=== PATIENT | male | born 1975 | race Caucasian/White ===

== ENCOUNTER 2016-07-19 01:31 | Emergency (ER) | payer OTHER ==
[~2016-07-19] VITALS: Ht 177.8 cm; Wt 89.9 kg
[~2016-07-19 01:31] MED LIST: DIVA500T3 PO; DPKSR500 PO; MAGN1TAB16 PO; OLAN10TA11 PO
[2016-07-19 01:37] VITALS: Ht 177.8 cm; Wt 89.9 kg
[2016-07-19] MEDS ORDERED: LORAZEPAM 2 MG/ML 1 ML VIAL IV STA (01:41)
[2016-07-19] MEDS ORDERED: ASPIRIN 324 MG CHEW PO STA (01:41)
[2016-07-19 01:56] LABS: HEMATOCRIT 43.6 % (42-52); MEAN CELL VOLUME 86.2 fL (80-100); MEAN CORPUSCULAR HEMOGLOBIN 31.4 pg (25-34); MEAN CORPUSCULAR HGB CONC 36.5 g/dl (32-36); PLATELET COUNT 139 K/uL (130-400); RED BLOOD COUNT 5.06 M/uL (4.7-6.1); WHITE BLOOD COUNT 7.86 K/uL (4.8-10.8)
[2016-07-19 02:32] LABS: BASO ABS # 0.14 K/uL (0-0.2); BASOPHIL % 1.8 % (0-2); COMPLETE YES; LYMPH ABS # 2.71 K/uL (1.2-3.4); LYMPHOCYTE % 34.5 %; NEUTROPHILS % 15.9 %; VARIANT LYM ABS # 3.48 K/uL; VARIANT LYMPHOCYTE % 44.3 %
[2016-07-19 02:33] LABS: BLOOD UREA NITROGEN 13 mg/dl (7-18); BUN/CREATININE RATIO 11.6 (10-20); CALCIUM 9.1 mg/dl (8.5-10.1); CARBON DIOXIDE 27 mmol/L (21-32); CHLORIDE 102 mmol/L (98-107); GLUCOSE 104 mg/dl (70-99); POTASSIUM 3.7 mmol/L (3.5-5.1); SODIUM 140 mmol/L (136-145)
[2016-07-19] MEDS ORDERED: DIVA500T3 PO (02:37)
[2016-07-19] MEDS ORDERED: MAGN250T3 PO (02:38)
[2016-07-19] MEDS ORDERED: OMEG10007 PO (02:39)
[2016-07-19] MEDS ORDERED: ASPI325T45 PO (02:39)
--- NOTE | 2016-07-19 02:54 | EMERGENCY ROOM VISIT NOTE ---
History Report prepared by Manish: Peyton Mcgrath Under the Supervision of: Dr. Diogo Childress M.D. First contact with patient: 01:34 Chief Complaint: CARDIAC ASSESSMENT Stated Complaint: CHEST DISCOMFORT History of Present Illness The patient is a 41 year old male who presents to the Emergency Room for a cardiac assessment. The patient had a sudden onset of left-sided chest pain around midnight. He describes his pain as sharp and throbbing. He rates his pain as a 4/10. His pain radiates into his left leg. The patient was brought to the ED by ambulance. He states that his pain has started to improve since arriving in the ED. Pressing on his chest exacerbates his pain. The patient also reports elevated BP and palpitations. He denies any recent heavy lifting or long trips. He denies abdominal pain and feeling anxious. He denies any personal or family history of blood clots. 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 A total of 10 systems reviewed and were otherwise negative. Past Medical & Surgical Medical Problems: (1) Depression (2) Schizoaffective disorder, manic type (3) Schizophrenia (4) [place] Teeth Removal Family History FHx: heart disease Social History Smoking Status: Never Smoker Alcohol Use: none Drug Use: none Marital Status: Housing Status: lives with family Occupation Status: unemployed Current/Historical Medications Scheduled Aspirin (Aspirin), 325 MG PO DAILY Divalproex Sodium (Depakote Er), 1,000 MG PO HS Fish Oil ([place]-3), 2,000 MG PO DAILY Magnesium (Magnesium 250 mg), 250 MG PO DAILY Olanzapine (Zyprexa), 5 MG PO HS Allergies Coded Allergies: Quetiapine (Verified Allergy, Unknown, hives, 07/19/16) family reports patient CAN take seroquel but cannot take seroquel xr. Physical Exam Vital Signs Date Time Temp Pulse Resp B/P Pulse Ox O2 Delivery O2 Flow Rate FiO2 07/19/16 03:20 36.8 110 19 123/73 92 07/19/16 03:01 110 19 123/73 92 Room Air 07/19/16 02:35 85 18 127/85 91 Room Air 07/19/16 01:50 86 07/19/16 01:37 Room Air 07/19/16 01:37 36.8 92 22 162/105 95 Room Air Physical Exam GENERAL: Patient is anxious appearing and in no acute distress. HEENT: No acute trauma, normocephalic atraumatic, mucous membranes moist, no nasal congestion, no scleral icterus. NECK: No stridor, no adenopathy, no meningismus, trachea is midline. LUNGS: No dyspnea. Clear to auscultation and equal bilaterally. No wheeze, no rhonchi. HEART: Regular rate and rhythm. No murmurs, rubs, gallops appreciated. ABDOMEN: Soft, nontender, bowel sounds positive, no masses appreciated, no peritonitis. BACK: No midline tenderness, no CVA tenderness EXTREMITIES: Normal motion all extremities, no cyanosis, no edema. NEUROLOGIC: Alert and oriented, no acute motor or sensory deficits, no focal weakness, cranial nerves grossly intact. SKIN: No rash, no jaundice, no diaphoresis. Medical Decision & Procedures ER Provider Diagnostic Interpretation: X ray results are stated below per my interpretation: Chest: 1 view: No infiltrate, no effusion, normal cardiac border. Laboratory Results 07/19/16 01:45 Red Blood Count 5.06, Mean Corpuscular Volume 86.2, Mean Corpuscular Hemoglobin 31.4, Mean Corpuscular Hemoglobin Concent 36.5, Mean Platelet Volume 10.0 07/19/16 01:45 Test 07/19/16 01:45 White Blood Count 7.86 K/uL (4.8-10.8) Red Blood Count 5.06 M/uL (4.7-6.1) Hemoglobin 15.9 g/dL (14.0-18.0) Hematocrit 43.6 % (42-52) Mean Corpuscular Volume 86.2 fL (80-100) Mean Corpuscular Hemoglobin 31.4 pg (25-34) Mean Corpuscular Hemoglobin Concent 36.5 g/dl (32-36) Platelet Count 139 K/uL (130-400) Mean Platelet Volume 10.0 fL (7.4-10.4) RDW Standard Deviation 37.4 fL (36.4-46.3) RDW Coefficient of Variation 12.0 % (11.5-14.5) Neutrophils % (Manual) 15.9 % Lymphocytes % (Manual) 34.5 % Variant Lymphocytes % (manual) 44.3 % Monocytes % (Manual) 3.5 % Basophils % (Manual) 1.8 % (0-2) Neutrophils # (Manual) 1.25 K/uL (1.4-6.5) Total Absolute Neutrophils 1.25 K/uL (1.4-6.5) Lymphocytes # (Manual) 2.71 K/uL (1.2-3.4) Absolute Variant Lymphocytes 3.48 K/uL Total Absolute Lymphocytes 6.19 K/uL (1.2-3.4) Monocytes # (Manual) 0.28 K/uL (0.11-0.59) Basophils # (Manual) 0.14 K/uL (0-0.2) D-Dimer < 190 ug/L FEU (0-500) Anion Gap 11.0 mmol/L (3-11) Est Creatinine Clear Calc Drug Dose 97.7 ml/min Estimated GFR () 94.8 Estimated GFR (Non- 81.8 BUN/Creatinine Ratio 11.6 (10-20) Calcium Level 9.1 mg/dl (8.5-10.1) Total Creatine Kinase 108 U/L (39-308) Creatine Kinase MB < 0.5 ng/ml (0.5-3.6) Creatine Kinase MB Ratio (0-3.0) Troponin I < 0.015 ng/ml (0-0.045) Laboratory results as reviewed by me. Medications Administered Medications (Trade) Dose Ordered Sig/David Route Start Time Stop Time Status Last Admin Dose Admin Aspirin (Aspirin Chew) 324 mg NOW STAT PO 07/19/16 01:41 07/19/16 01:42 DC 07/19/16 01:51 324 MG Lorazepam (Ativan Inj) 1 mg NOW STAT IV 07/19/16 01:41 07/19/16 01:42 DC 07/19/16 01:51 1 MG ECG Indication: chest pain Rate (beats per minute): 87 Rhythm: normal sinus Findings: RBBB, no acute ischemic change, other Comparison ECG Date: 04/22/2014 Change: no significant change ED Course 0134: The patient was evaluated in room B12B. A complete history and physical exam was performed. 0141: Lorazepam 1 mg IV, Aspirin 324 mg PO 0303: I reassessed the patient at this time. He is feeling better and his pain has resolved. He states that this has happened many times before and it isn't his heart. He does not want repeat blood work done. He is requesting to be discharged. I discussed the results and treatment plan with the patient. I answered all pertaining questions that he had. He expressed understanding and verbalized agreement. The patient will be discharged home. Medical Decision Differential: Cardiac Ischemia (STEMI, NSTEMI, Unstable Angina, etc), Aortic Dissection, Arrhythmia, Pulmonary Embolism, Pneumonia, Pneumothorax, MSK, Infectious, Pericarditis/Myocarditis, Esophageal Rupture, Gastrointestinal, amongst other pathologies entertained. 41 yr old male arrives with left sharp clearly reproducible chest pain to palpation. Notes happened many times before. Pain resolving by arrival and anxiety/pain completely gone post ASA ativan. He now wishes to go home stating this happens all the time. Initial EKG and trop unremarkable. Advised repeat testing for cardiac rule out with risks of not and he still wishes to go home. Advised follow up with PCP. RTED at any time for further evaluation/treatment. No evidence of PE, dissection. No infectious findings nor pneumothorax. Denies GI issues. Impression Primary Impression: Left sided chest pain Scribe Attestation The scribe's documentation has been prepared under my direction and personally reviewed by me in its entirety. I confirm that the note above accurately reflects all work, treatment, procedures, and medical decision making performed by me. Departure Information Dispostion Home / Self-Care Referrals [facility] Forms IMPORTANT VISIT INFORMATION Patient Instructions Chest Pain - [facility], My [facility] Additional Instructions If symptoms worsen return immediately or call 911. We are always here to help. Please follow up with Primary Care for further evaluations.
[2016-07-19 03:20] VITALS: BP 123/73; PULSE 110; TEMP 36.8; O2SAT 92
--- NOTE | 2016-07-19 07:15 | DIAGNOSTIC IMAGING REPORT ---
CHEST ONE VIEW PORTABLE CLINICAL HISTORY: Atypical chest pain COMPARISON STUDY: 04/22/2014 FINDINGS: The cardiac and mediastinal contours are normal. There is no evidence of focal pulmonary consolidation. There is no evidence of failure. No pleural effusions are visualized.[ There is minor right basilar atelectasis IMPRESSION: No active disease in the chest. Electronically signed by: Michael Maria M.D. 07/19/2016 7:14 AM Dictated Date/Time: 07/19/2016 7:13 AM
== END 2016-07-19 03:21 | disposition home or self-care (01) ==
LOC: EDBD 01:31 → C.EDB 01:33
DX: R07.89 Other chest pain (principal); I45.10 Unspecified right bundle-branch block; F32.9 Major depressive disorder, single episode, unspecified; F20.9 Schizophrenia, unspecified; Z79.82 Long term (current) use of aspirin; Z79.899 Other long term (current) drug therapy; Z88.8 Allergy status to other drugs, medicaments and biological substances; Z82.49 Family history of ischemic heart disease and other diseases of the circulatory system

== ENCOUNTER 2017-01-09 12:14 | Emergency (ER) | payer OTHER ==
[~2017-01-09] VITALS: Ht 177.8 cm; Wt 90.9 kg
[~2017-01-09 12:14] MED LIST changes: +ASPI325T45 PO; -DPKSR500 PO; -MAGN1TAB16 PO; +MAGN250T3 PO; +OMEG10007 PO
[2017-01-09 12:18] VITALS: TEMP 36.7; Ht 177.8 cm; Wt 90.9 kg
[2017-01-09] MEDS ORDERED: DIVA500T3 PO (13:12)
[2017-01-09] MEDS ORDERED: MAGN250T9 PO (13:12)
[2017-01-09] MEDS ORDERED: ASPI81TA28 PO (13:12)
[2017-01-09] MEDS ORDERED: OLAN-111 PO (13:12)
[2017-01-09 13:41] VITALS: BP 147/102; PULSE 75; O2SAT 97
--- NOTE | 2017-01-09 23:19 | EMERGENCY ROOM VISIT NOTE ---
ED Visit Note First contact with patient: 12:57 Chief Complaint: Headache and nausea. History of Present Illness: Mr. Hilliard is a 41-year-old white male who ambulates into the ED with complaints of hypertension. Patient reports he feels like he is having a reaction to mayonnaise similar to previous after eating macaroni salad last evening. Patient reports after eating macaroni salad he developed nausea but did not have any vomiting. He reports the nausea lasted until this morning when he went for a walk. This morning when he awoke he reports he developed a bifrontal headache. He describes this as a throbbing sensation and then goes on to report that the pain has resolved. Associated with the pain he reports he was having light sensitivity and also reports this has self resolved. After an extensive interview I did asked the patient if he was having any problems currently and he reports he is having hypertension. He does report he has a history of hypertension but does not take any medications for it. I asked him if he had any symptoms with his hypertension and he said no. I did offer to do testing on the patient concerning his symptoms that started last evening and also today and he refused. He did request that I prescribe some medication for high blood pressure and I reported that that need occur during a primary care provider appointment. He then went on to report that he does not have a primary care physician and requested that I find one for him. Buy the end of my interview with the patient he reports that he is a pain and symptom-free. Review of Systems: As noted above in history of present illness. At least body systems were reviewed and found to be negative as noted above. Past Medical History: (1) Depression (2) Schizoaffective disorder, manic type (3) Schizophrenia (4) [place] Teeth Removal Current Medications: Medications Dose Route/Sig Max Daily Dose Days Date Category Zyprexa (Olanzapine) 5 Mg Tab 5 Mg PO HS 01/09/17 Reported Magnesium 250 Mg Tab 250 Mg PO DAILY 01/09/17 Reported Depakote Er (Divalproex Sodium) 500 Mg Tab 1,000 Mg PO HS 01/09/17 Reported Aspirin Ec (Aspirin) 81 Mg Tab 81 Mg PO DAILY 01/09/17 Reported Allergies to Medications: Quetiapine. Social History: Patient is not employed; he lives by himself and feels safe in his home environment; he denies tobacco use and admits to alcohol use. Physical Examination: Vital Signs: Date Time Temp Pulse Resp B/P (MAP) Pulse Ox O2 Delivery O2 Flow Rate FiO2 01/09/17 13:41 75 20 147/102 97 Room Air 01/09/17 12:18 36.7 87 18 182/93 97 Room Air GENERAL: 41-year-old male in no acute distress, nontoxic-appearing, afebrile and hemodynamically stable. NEUROLOGICAL: Awake, alert and oriented to person, place and time. Answering questions appropriately and following commands. Normal gait. Good hand eye coordination. No focal motor sensory deficits. SKIN: Warm, dry and pink. No soft tissue eruptions or trauma noted. HEENT: Atraumatic and normocephalic. PERRLA. Funduscopic examination is unremarkable with a normal-appearing optic desk and no signs of increased intracranial pressure. Sclera white and conjunctiva pink. Auditory canals are pink and patent tympanic membranes are pearly billings with normal light reflex. No drainage from naris. Airway patent. Pharynx is nonerythematous or edematous. Speech normal. No lymphadenopathy. Trachea midline. No jugular venous distention. No carotid bruits. BACK: No tenderness over the bony spine. No CVA tenderness. THORAX: Lungs sounds are clear to auscultation and equal bilaterally with symmetrical chest wall. No wheezing, rales or rhonchi. No crepitus, tenderness , subcutaneous air or deformities noted. HEART: Regular rate and rhythm. No gallops, rubs or murmurs are appreciated. No lifts, heaves or thrills. PMI is not displaced. ABDOMEN: Flat, soft and nontender. Positive bowel sounds in all quadrants. No guarding, rigidity or organomegaly. EXTREMITIES: Moves all extremities well on command and with purpose. All distal neurovascular statuses are intact and equal bilaterally. No calf tenderness or cords. ED Course: Patient is assessed as noted above. Patient refused any additional testing. Patient's case was reviewed with my attending Dr. Bruce; we agreed on diagnostic approach, treatment, disposition and plan. Patient's case was consulted with case management for possible referral to primary care provider; case management was able make an appointment at the [facility] for tomorrow morning. Patient was educated about today's findings and instructed on his treatment plan ; he verbalized understanding and agreement with this plan. Clinical Impression: Hypertension. Shortness of breath, resolved. Headache, resolved. Disposition: Patient discharged home in stable condition; prior to departure he subjectively reported that he was pain and symptom-free. Plan: Patient was encouraged to continue his current medication as prescribed. Patient was encouraged to avoid mayonnaise. Patient was encouraged to keep his upcoming appointment for evaluation of this eye blood pressure. Patient was encouraged return ED for return of headaches, return if shortness of breath, any sensations of throat swelling or itchy skin or any new/ concerning symptoms.
== END 2017-01-09 14:01 | disposition home or self-care (01) ==
LOC: C.EDB 12:15 → C.EDC 14:01
DX: I10 Essential (primary) hypertension (principal); R06.02 Shortness of breath; R51 Headache; F32.9 Major depressive disorder, single episode, unspecified; F25.0 Schizoaffective disorder, bipolar type; Z79.82 Long term (current) use of aspirin; Z79.899 Other long term (current) drug therapy

== ENCOUNTER 2017-03-10 17:16 | Emergency (ER) | payer OTHER ==
[~2017-03-10] VITALS: Ht 175.3 cm; Wt 88.2 kg
[~2017-03-10 17:16] MED LIST changes: -ASPI325T45 PO; +ASPI81TA28 PO; -MAGN250T3 PO; +MAGN250T9 PO; +OLAN-111 PO; -OLAN10TA11 PO; -OMEG10007 PO
[2017-03-10 17:37] VITALS: BP 124/91; TEMP 37.7; O2SAT 96; Ht 175.3 cm; Wt 88.2 kg
[2017-03-11] MEDS ORDERED: OLAN10TA11 PO (17:53)
== END 2017-03-10 18:13 | disposition left against medical advice (07) ==
LOC: C.EDB 17:17 → C.EDA 18:13
DX: Z53.29 Procedure and treatment not carried out because of patient's decision for other reasons (principal)

== ENCOUNTER 2017-05-12 16:50 | Emergency (ER) | payer OTHER ==
[~2017-05-12] VITALS: Ht 179.1 cm; Wt 85.4 kg
[~2017-05-12 16:50] MED LIST changes: -ASPI81TA28 PO; -MAGN250T9 PO; -OLAN-111 PO; +OLAN10TA11 PO
[2017-05-12 16:54] VITALS: BP 153/91; PULSE 126; TEMP 36.6; O2SAT 98; Ht 179.1 cm; Wt 85.4 kg
--- NOTE | 2017-05-12 17:29 | EMERGENCY ROOM VISIT NOTE ---
History Report prepared by Manish: Flip Sims Under the Supervision of: Dr. Shikha Rodriguez M.D. First contact with patient: 17:12 Chief Complaint: MENTAL HEALTH EVALUATION Stated Complaint: DEPRESSION History of Present Illness The patient is a 41 year old male who presents to the Emergency Room with complaints of constant depression beginning two weeks ago. The patient states he has a history of these episodes, and it typically happens at this time of the year, but not every year. He reports he is only here to receive a prescription for Wellbutrin. The patient notes he was on Wellbutrin a few years ago, but he stopped taking it. He states he has not seen his psychiatrist because they are closed for the Holidays. The patient reports he has not sought help yet for his depression, but he denies homicidal and suicidal ideations. He notes he has not taken extra medication to try to cope with his symptoms. The patient states he takes Lorazepam, Depakote, and magnesium. He reports his Lorazepam dose was increased a couple months ago. He reports he has been drinking a lot of fluids, but he is not eating enough. The patient notes he drinks a lot of coffee because he needs to stay awake. He states he lives by himself, is unemployed, and sleeps 16 hours a day. The patient denies alcohol use, a history of smoking, stimulant use, and weight loss. He reports he does not have health insurance. Source of History: patient Onset: two weeks ago Position: other (global) Quality: other (depression) Timing: constant Associated Symptoms: + fatigue (sleeping 16 hours a day) Note: Associated symptoms: decreased appetite Denies: Homicidal ideation, suicidal ideation Review of Systems See HPI for pertinent positives & negatives. A total of 10 systems reviewed and were otherwise negative. Past Medical & Surgical Medical Problems: (1) Constipation (2) Hypocholesteremia (3) Past Psych Meds (4) Schizoaffective disorder, bipolar type (5) [place] Teeth Removal Family History FHx: heart disease Hypertension Social History Smoking Status: Never Smoker Smokeless Tobacco Use: No Alcohol Use: none Drug Use: none Marital Status: single Housing Status: lives alone Occupation Status: unemployed Current/Historical Medications Scheduled Divalproex Sodium (Depakote Er), 1,000 MG PO HS Olanzapine (Zyprexa), 15 MG PO QPM Allergies Coded Allergies: Quetiapine (Verified Allergy, Unknown, hives, 05/12/17) family reports patient CAN take seroquel but cannot take seroquel xr. Physical Exam Vital Signs Date Time Temp Pulse Resp B/P (MAP) Pulse Ox O2 Delivery O2 Flow Rate FiO2 05/12/17 16:54 36.6 126 20 153/91 98 Room Air Physical Exam Vital signs reviewed. General: Well-appearing 41-year-old male, in no significant distress. HEENT: No scleral icterus, PERRLA, neck supple. Atraumatic. Cardiovascular: Regular rate and rhythm, no extra sounds. Pulmonary: Clear to auscultation bilaterally, normal work of breathing. Abdomen: Soft, nontender, nondistended, positive bowel sounds. Musculoskeletal: Atraumatic, no peripheral edema. Neurologic: Patient awake alert and oriented x 3, full strength in all 4 extremities. Cranial nerves 2 through 12 grossly intact. Skin: Warm, dry, no rash Psych: Denies SI, HI Medical Decision & Procedures Laboratory Results Laboratory results per my review. ED Course 172: Past medical records reviewed. The patient was evaluated in room A05. A complete history and physical examination was performed. After the exam, I discussed the need for a work-up. The patient states he does not want to receive a work up because he does not have insurance. He reports he only came to the ED for a Wellbutrin prescription. I discussed the risks and potential health issues that may arise without a work-up. He still denies treatment and signed out AMA. Medical Decision Differential diagnosis: Etiologies such as mood disorder, infection, hypoglycemia, electrolyte abnormalities, cardiac sources, intracerebral event, toxicologic, neurologic, as well as others were entertained. This patient was evaluated and appeared to be in no significant distress. The patient is requesting Wellbutrin be initiated this evening. He states it will help him wake up at a normal time. The patient does have a psychiatric care provider at [facility] but has not seen her over the last 2 weeks. He denies suicidal or homicidal ideation. He does not want to have any laboratory work done because he had some last month. He states he does not have any insurance and is not willing to spend the money. Due to the patient's complaints of excessive fatigue and sleep as well as his depressed mood, I feel laboratory evaluation is prudent. He is denying SI and HI. After being informed that we' ll patient would not be provided tonight unless recommended by a psychiatrist, the patient asked to be signed out. I do not see any reason that the patient is not competent or safe to be discharged. He was asked to follow-up with [facility] this week. He will return to the ER for worsening of symptoms or any medical concerns. Impression Primary Impression: Mood disorder Scribe Attestation The scribe's documentation has been prepared under my direction and personally reviewed by me in its entirety. I confirm that the note above accurately reflects all work, treatment, procedures, and medical decision making performed by me. Departure Information Dispostion Against Medical Advice Referrals Can Help Forms HOME CARE DOCUMENTATION FORM, IMPORTANT VISIT INFORMATION Patient Instructions My [facility] Additional Instructions Diagnosis: Mood disorder You have declined any laboratory evaluation or mental health evaluation today. Please drink plenty of clear fluids and avoid excessive caffeine intake. Follow-up with your psychiatric care provider as soon as possible for reevaluation. Contact can help for any urgent mental health needs. Please see the number below. Return to the emergency department for worsening of symptoms or any medical concerns.
== END 2017-05-12 17:52 | disposition left against medical advice (07) ==
LOC: C.EDB 16:51 → C.EDA 17:52
DX: F39 Unspecified mood [affective] disorder (principal); E78.00 Pure hypercholesterolemia, unspecified; F20.9 Schizophrenia, unspecified; F31.9 Bipolar disorder, unspecified; Z79.899 Other long term (current) drug therapy; Z88.8 Allergy status to other drugs, medicaments and biological substances; Z82.49 Family history of ischemic heart disease and other diseases of the circulatory system